=== PATIENT | female | born 1985 ===

== ENCOUNTER 2018-09-18 15:33 | Emergency (ER) | payer OTHER, SELFPAY ==
[2018-09-18 15:46] VITALS: BP 129/85; PULSE 80; RESP 16; TEMP 36.8; O2SAT 97
--- NOTE | 2018-09-18 16:26 | DI.RAD_ITS ---
SYMPTOM/DIAGNOSIS: PAIN, TENDERNESS LATERAL EPICONDYLE RIGHT ELBOW: Three views. No bone or joint abnormality is identified. IMPRESSION: Negative examination.
--- NOTE | 2018-09-18 16:28 | ED.GENADUL_ITS ---
Discharge Plan Disposition Patient Disposition: HOME Discharge Details Chief Complaint: Orthopedic Clinical Impression: Contusion of elbow, right, Injury of elbow, left Reason For Visit: right elbow pain Primary Care Provider: None,None ED Provider: Nikhil Woody Discharge Instructions Instructions: Contusion in Adults (ED) Additional Instructions: Please use sling for your arm for the next 1 week. No lifting or use of the arm. If pain persists, see an safety compliance specialist. Please contact your primary care physician to arrange follow-up. Return to the ER or seen an safety compliance specialist for any worsening or new concerning symptoms. Stand Alone Forms: Work Release Discharge Data Discharge Date/Time-TO BE ENTERED AT DEPARTURE: 09/18/18 18:24 Medical Decision Making 16:35 --43-year-old female here with injury to her right elbow, tender over lateral epicondyle. Neuro intact distally. Consider fracture vs contusion. -- xray of elbow interpreted by radiology: No evidence of acute bony abnormality. Suspect contusion. Sling provided. Advised outpatient follow-up. Usual and customary discharge instructions were provided. HPI General Mode of arrival: ambulatory . Date/Time Provider Initiated Documentation: 09/18/18 16:06 . Limitations to Documentation: no limitations . Information obtained by: patient . HPI Narrative: 33-year-old female presents with chief plane of elbow pain. Patient notes she impacted her right elbow on a bed frame at work at 130 today. Pain has persisted. Pain is localized to her lateral right elbow. Pain is mild but worse on palpation and with movement of the elbow. No associated numbness or weakness. Related Data Allergies Allergy/AdvReac Type Severity Reaction Status Date / Time No Known Allergies Allergy Unverified 09/18/18 16:38 General Stated Complaint: Orthopedic LORENA: 4 Review of Systems Musculoskeletal Reports as per HPI [facility] Social History Smoking/Tobacco Use Status: Never Exam Const General: cooperative and no acute distress Cardio Rate: regular rate and not tachycardic Rhythm: regular rhythm Skin General skin exam: no rashes or lesions noted Neuro General: alert and awake Extrem General: no edema Right upper extremity: elbow/forearm Details: tenderness Location: of the lateral epicondyle and distal pulses intact; no swelling, no lacerations and no deformity Course Vital Signs Temperature 36.8 C 09/18/18 15:46 Pulse 80 09/18/18 15:46 Respiratory Rate 16 09/18/18 15:46 Blood Pressure 129/85 09/18/18 15:46 Pulse Oximetry 97 09/18/18 15:46 Temperature 36.8 C 09/18/18 15:46 Temperature Source Temporal Artery Scan 09/18/18 15:46 Pulse 80 09/18/18 15:46 Respiratory Rate 16 09/18/18 15:46 Respiratory Effort 09/18/18 15:50 Blood Pressure 129/85 09/18/18 15:46 Pulse Oximetry 97 09/18/18 15:46 Pain Level 6 09/18/18 15:46
--- NOTE | 2018-09-18 16:55 | DI.VRAD_ITS ---
EXAM: XR Right Elbow Complete, 3 or more Views EXAM DATE/TIME: 09/18/2018 4:27 PM CLINICAL HISTORY: 33 years old, female; Pain; Elbow; Right; Patient HX: Pain, tenderness lateral epicondyle TECHNIQUE: XR Right elbow 3 or more views. COMPARISON: No relevant prior studies available. FINDINGS: The bony structures are in anatomic alignment. No fracture is present. No radiopaque foreign body is identified. The joint spaces are well maintained. IMPRESSION: No evidence of acute bony abnormality. Dictated and Authenticated by: John Lewis MD. Ordering:GERRY IVORY MD
== END 2018-09-18 18:24 | disposition home or self-care (01) ==
PROVIDERS: Emergency Provider Student in an Organized Health Care Education/Training Program
DX: S50.01XA Contusion of right elbow, initial encounter (principal); W22.8XXA Striking against or struck by other objects, initial encounter; Y99.0 Civilian activity done for income or pay
CPT/HCPCS: 99283; 73080; L3650